=== PATIENT | female | born 1945 | race African-American/Black ===

== ENCOUNTER 2018-10-01 23:00 | Emergency (ER) | payer OTHER, BC ==
[~2018-10-01] VITALS: Ht 167.6 cm; Wt 88.5 kg
[~2018-10-01 23:00] MED LIST: HCTZ; LISINOPRIL; LISINOPRIL2.5 MG PO; POTASSIUM20
[2018-10-02 00:04] LABS: ABSOLUTE NEUTROPHILS 2.6 thou/uL (1.4-8.2); BASOPHILS 0.6 % (0.0-2.0); EOSINOPHILS 1.4 % (0.0-3.0); HEMATOCRIT 39.4 % (37.0-47.0); LYMPHOCYTES 33.1 % (24.0-44.0); MCH 25.3 pg (26.0-34.0); MCV 76.6 fL (80.0-100.0); MONOCYTES 8.4 % (1.0-8.0); PLATELET COUNT 289 thou/uL (150-400); POLYS 56.5 % (36.0-66.0); RBC 5.14 mil/uL (4.20-5.00); RDW 15.1 % (10.5-14.5); WBC 4.6 thou/uL (4.0-11.0)
[2018-10-02 00:06] LABS: URINE BILIRUBIN NEGATIVE (Negative); URINE BLOOD NEGATIVE (Negative); URINE CLARITY CLEAR; URINE COLOR YELLOW; URINE GLUCOSE-RANDOM* NEGATIVE (Negative); URINE KETONES NEGATIVE (Negative); URINE LEUKOCYTES-REFLEX NEGATIVE (Negative); URINE NITRITE-REFLEX NEGATIVE (Negative); URINE PROTEIN (DIPSTICK) NEGATIVE (Negative); URINE SPECIFIC GRAVITY <= 1.005 (1.005-1.035); URINE UROBILINOGEN 0.2 E.U./dl (0.2-1.0)
[2018-10-02 00:12] LABS: ANION GAP 9 mmol/L (7-16); BUN 15 mg/dL (7-18); CALCIUM 9.6 mg/dL (8.5-10.1); CHLORIDE 102 mmol/L (98-107); CO2 28 mmol/L (21-32); CREATININE 1.1 mg/dL (0.6-1.0); GLUCOSE 104 mg/dL (74-106); POTASSIUM 3.6 mmol/L (3.5-5.1); SODIUM 139 mmol/L (136-145)
[2018-10-02 00:20] LABS: ALBUMIN 3.8 g/dL (3.4-5.0); SGOT 17 U/L (15-37); SGPT 19 U/L (30-65); TOTAL BILIRUBIN 0.2 mg/dL (<0.1-1.0); TOTAL PROTEIN 7.8 g/dL (6.4-8.2); TROPONIN-I <0.06 ng/mL (<0.06)
[2018-10-02 02:40] VITALS: BP 133/76
--- NOTE | 2018-10-02 08:39 | EKG ---
[place] [address] [employer] [facility] [place] [address] ELECTROCARDIOGRAM REPORT Name: TAL QUESADA Room #: [id number] ������������������ Admission: 10/01/18 ������������������ Attend Phys: Discharge: 10/02/18 ������������������ Date of : 41 Report #: [id number] ����������������������������������������������������������������� [id number] THIS REPORT FOR: //name// [facility] ED Test Date: 2018-10-01 Test Time: 23:24:13 Pat Name: TAL QUESADA Department: Room: Gender: F Customer Success Specialist: : 1945 Requested By: Anna Merrill Order Number: [id number] MD: Janes Duggan Measurements Intervals [place] Rate: 71 P: 65 DE: 161 QRS: 10 QRSD: 96 T: 71 QT: 402 QTc: 437 Interpretive Statements Sinus rhythm No significant abnormality Compared to ECG 03/26/2011 08:34:50 No significant change was found Electronically Signed On 10-02-2018 8:38:54 [employer] by Janes Duggan [email or web address] ��������������������������������������������� <ELECTRONICALLY SIGNED> ���������������������������������������� By: Janes Duggan MD, [facility] ��������������������������������������������� 10/02/18 0838 [id number] 2324 Janes Duggan MD, FACC /EPI
== END 2018-10-02 02:40 | disposition home or self-care (01) ==
LOC: ER 23:00
PROVIDERS: Emergency Medicine
DX: K21.9 Gastro-esophageal reflux disease without esophagitis (principal); I10 Essential (primary) hypertension

== ENCOUNTER 2020-05-11 19:02 | Emergency (ER) | payer OTHER, BC ==
[~2020-05-11] VITALS: Ht 167.6 cm; Wt 81.7 kg
[2020-05-11 21:32] VITALS: BP 163/71
== END 2020-05-11 21:33 | disposition home or self-care (01) ==
LOC: ER 19:02
DX: S61.216A Laceration without foreign body of right little finger without damage to nail, initial encounter (principal); I10 Essential (primary) hypertension; Z79.899 Other long term (current) drug therapy; W23.0XXA Caught, crushed, jammed, or pinched between moving objects, initial encounter; Y92.89 Other specified places as the place of occurrence of the external cause; Y93.89 Activity, other specified; Y99.8 Other external cause status

== ENCOUNTER 2021-02-06 11:51 | Emergency (ER) | payer OTHER, BC ==
[~2021-02-06] VITALS: Ht 167.6 cm; Wt 77.1 kg
[2021-02-06 12:20] LABS: URINE BILIRUBIN NEGATIVE (Negative); URINE BLOOD TRACE (Negative); URINE CLARITY CLEAR; URINE COLOR YELLOW; URINE GLUCOSE-RANDOM* NEGATIVE (Negative); URINE KETONES NEGATIVE (Negative); URINE LEUKOCYTES-REFLEX NEGATIVE (Negative); URINE NITRITE-REFLEX NEGATIVE (Negative); URINE PROTEIN (DIPSTICK) NEGATIVE (Negative); URINE UROBILINOGEN 0.2 E.U./dl (0.2-1.0)
[2021-02-06 12:42] LABS: BASOPHILS 0.6 % (0.0-2.0); EOSINOPHILS 0.3 % (0.0-3.0); HEMATOCRIT 42.5 % (37.0-47.0); HEMOGLOBIN 13.9 gm/dL (12.0-15.0); LYMPHOCYTES 22.7 % (24.0-44.0); MCH 25.8 pg (26.0-34.0); MCHC 32.6 g/dL (28.0-37.0); MONOCYTES 5.9 % (1.0-8.0); PLATELET COUNT 310 thou/uL (150-400); POLYS 70.5 % (36.0-66.0); RBC 5.38 mil/uL (4.20-5.00); RDW 14.5 % (10.5-14.5); WBC 4.2 thou/uL (4.0-11.0)
[2021-02-06 12:44] LABS: ANION GAP 8 mmol/L (7-16); BUN 18 mg/dL (7-18); CALCIUM 9.6 mg/dL (8.5-10.1); CHLORIDE 103 mmol/L (98-107); CO2 30 mmol/L (21-32); CREATININE 1.1 mg/dL (0.6-1.0); GLUCOSE 121 mg/dL (74-106); POTASSIUM 3.5 mmol/L (3.5-5.1); SODIUM 141 mmol/L (136-145)
[2021-02-06 12:54] LABS: ALBUMIN 4.2 g/dL (3.4-5.0); LIPASE 113 U/L (73-393); SGOT 15 U/L (15-37); SGPT 22 U/L (14-59); TOTAL BILIRUBIN 0.6 mg/dL (0.2-1.0); TOTAL PROTEIN 8.2 g/dL (6.4-8.2); TROPONIN-I <0.06 ng/mL (<0.06)
[2021-02-06 14:06] VITALS: BP 136/60
[2021-02-06] MEDS ORDERED: MILK OF MA400 MG/5 M PO (14:09)
--- NOTE | 2021-02-06 14:32 | EKG ---
[address] [place] [address] ELECTROCARDIOGRAM REPORT Name: TAL QUESADA [facility]: [id number] Admission: 02/06/21 Attend Phys: Discharge: 02/06/21 Date of : 41 Report #: [id number] [facility] ED Test Date: 2021-02-06 Test Time: 12:17:57 Pat Name: TAL QUESADA Department: Room: Gender: F Public Health Specialist: : 1945 Requested By: Arthur Parker Order Number: [id number] MD: Sean Cyr Measurements Intervals [place] Rate: 90 P: 52 MD: 148 QRS: -5 QRSD: 111 T: 41 QT: 368 QTc: 451 Interpretive Statements Sinus rhythm Compared to ECG 10/01/2018 23:24:13 No significant changes Electronically Signed On 02-06-2021 14:31:49 CDT by Sean Cyr [email or web address] <ELECTRONICALLY SIGNED> By: Sean Cyr MD, [facility] 02/06/21 1431 1217 1217 Sean Cyr MD, FACC /EPI
== END 2021-02-06 14:09 | disposition home or self-care (01) ==
LOC: ER 11:51
PROVIDERS: Physician Assistant
DX: K59.00 Constipation, unspecified (principal); I10 Essential (primary) hypertension; Z98.890 Other specified postprocedural states; Z90.710 Acquired absence of both cervix and uterus